=== PATIENT | female | born 1955 | race African-American/Black ===

== ENCOUNTER 2016-08-30 14:11 | Emergency (ER) | payer MEDICARE, MEDICAID ==
[~2016-08-30] VITALS: Ht 154.9 cm; Wt 60.0 kg
[~2016-08-30 14:11] MED LIST: ASPI-1159 PO; ATOR-2 PO; AURYXIA PO; CARV25TA47 PO; DEXTROMETHORPHAN PO; DIPH1TAB76 PO; EZET10TA PO; FURO80TA3 PO; GABA300S PO; HUM10VIA8 SQ; HYDR-3513 PO; ISOS60TA4 PO; PROMETHAZINE PO; SEVE800T8 PO
[2016-08-30 15:07] VITALS: BP 149/81
== END 2016-08-30 20:28 | disposition home or self-care (01) ==
LOC: ER 14:13
DX: S90.32XA Contusion of left foot, initial encounter (principal); I73.9 Peripheral vascular disease, unspecified; Z79.899 Other long term (current) drug therapy; Z79.82 Long term (current) use of aspirin; I12.9 Hypertensive chronic kidney disease with stage 1 through stage 4 chronic kidney disease, or unspecified chronic kidney disease; N18.9 Chronic kidney disease, unspecified; Z99.2 Dependence on renal dialysis; J44.9 Chronic obstructive pulmonary disease, unspecified
CPT/HCPCS: 73630; 99284

== ENCOUNTER 2016-12-27 07:20 | Emergency (ER) | payer MEDICARE, MEDICAID ==
[~2016-12-27] VITALS: Ht 162.6 cm; Wt 64.0 kg
[~2016-12-27 07:20] MED LIST changes: -EZET10TA PO; +ZET10 PO
[2016-12-27] MEDS ORDERED: ONDANSETRON HCL 4MG/2ML VIAL IV STA (08:16)
[2016-12-27] MEDS ORDERED: MORPHINE SULFATE 4 MG/ML CPJ (NOT FOR IM USE) IV STA (08:16)
[2016-12-27 09:10] LABS: EOSINOPHILS % 0.6 % (0.0-5.0); HEMATOCRIT. 21.4 % (36.0-48.0); LYMPHOCYTES % 16.1 % (20.0-50.0); MEAN CORPUSCULAR HEMOGLOBIN 30.3 pg (28.0-32.0); MEAN CORPUSCULAR VOLUME 94.8 fL (81.0-99.0); MONOCYTES % 4.1 % (2.0-8.0); NEUTROPHILS % 78.2 % (40.0-76.0); PLATELET 225 x1000/uL (130-400); RED BLOOD CELL COUNT 2.25 mill/uL (4.2-5.4); RED CELL DISTRIBUTION WIDTH 17.2 % (11.6-14.6)
[2016-12-27 09:15] LABS: PROTHROMBIN TIME 10.9 sec (9.4-11.6)
[2016-12-27 09:24] LABS: HEMOGLOBIN. 6.8 g/dL (12.0-16.0)
[2016-12-27 09:30] LABS: CARBON DIOXIDE 13 mEq/L (21-32); CHLORIDE 101 mEq/L (98-107)
[2016-12-27] MEDS ORDERED: PANTOPRAZOLE SODIUM 40 MG/VIAL IV STA (09:36)
[2016-12-27] MEDS ORDERED: PANTOPRAZOLE 80 MG in SODIUM CHLORIDE 0.9% 100 ML IV STA (09:36)
[2016-12-27] MEDS ORDERED: INSULIN REGULAR (HUMULIN R) 300UNITS/3ML IV ONE (09:45)
[2016-12-27] MEDS ORDERED: SODIUM BICARBONATE 8.4% 1 MEQ/ML 50ML SYR IV ONE (09:45)
[2016-12-27] MEDS ORDERED: DEXTROSE 50% WATER 50ML SYRINGE IV ONE (09:45)
[2016-12-27] MEDS ORDERED: SODIUM CHLORIDE 0.9% IV ONE (10:30)
[2016-12-27] MEDS ORDERED: MORPHINE SULFATE 4 MG/ML CPJ (NOT FOR IM USE) IV ONE (10:30)
[2016-12-27] MEDS ORDERED: DESMOPRESSIN ACETATE IV ONE (10:30)
[2016-12-27] MEDS ORDERED: PANTOPRAZOLE 80 MG in SODIUM CHLORIDE 0.9% 80 ML IV STA (10:55)
[2016-12-27 11:13] VITALS: BP 131/76
[2016-12-27] MEDS ORDERED: SODIUM BICARBONATE 7.5% 0.9 MEQ/ML 50ML SYR IV ONE (12:40)
[2016-12-27] MEDS ORDERED: AMIODARONE HCL 50MG/ML 3ML VIAL IV ONE (12:40)
[2016-12-27] MEDS ORDERED: EPINEPHRINE 0.1MG/ML (1:10,000) 10ML SYR ONE (12:40)
[2016-12-27] MEDS ORDERED: CALCIUM CHLORIDE 1GM/10ML SYR IV ONE (12:40)
[2016-12-27] MEDS ORDERED: DOPAMINE 400MG IN DEXT 5% 250ML PREMIX IV ONE (12:40)
== END 2016-12-27 11:48 | disposition expired ==
LOC: ER 07:33 → EDBEDREQ 10:38 → EDBEDREQSVC 10:38 → ENRESERV 11:11 → CANRESERV 11:11 → ER 11:48 → CANBEDREQ 12:42 → ER 18:23
DX: K92.2 Gastrointestinal hemorrhage, unspecified (principal); N17.9 Acute kidney failure, unspecified; I12.0 Hypertensive chronic kidney disease with stage 5 chronic kidney disease or end stage renal disease; N18.6 End stage renal disease; E11.22 Type 2 diabetes mellitus with diabetic chronic kidney disease; E87.5 Hyperkalemia; R07.9 Chest pain, unspecified; Z99.2 Dependence on renal dialysis
CPT/HCPCS: 31500; 36415; 36430; 71010; 80053; 82962; 83605; 83690; 84484; 85025; 85610; 85730; 86850; 86900; 86901; 86920; 87040; 92950; 93005; 96374; 96375; 96376; 99291; C9113; J0171; J0282; J1265; J1815; J2270; J2405; J2597; J3490; J7050